=== PATIENT | male | born 1950 | race Two or more races ===

== ENCOUNTER 2018-09-04 05:34 | Day surgery (SDC) | payer OTHER ==
[~2018-09-04 05:34] MED LIST: ALLOPURINOL100 MG PO; MULTI VITAMIN1 EACH PO
== END 2018-09-04 13:55 | disposition home or self-care (01) ==
LOC: CIR.AMB 05:34
DX: D13.1 Benign neoplasm of stomach (principal); K60.3 Anal fistula

== ENCOUNTER 2019-03-16 19:09 | Inpatient (IN) | payer OTHER ==
[~2019-03-16] VITALS: Ht 177.8 cm; Wt 83.9 kg
== END 2019-03-18 10:15 | disposition home or self-care (01) | DRG 348 ==
LOC: ER 19:09 → SURH 19:40 → SEC-K 19:40 → SURH 03-17 00:47
PROVIDERS: ADMIT Colon & Rectal Surgery
PROC: 0D9Q0ZZ Drainage of Anus, Open Approach (ICD-10-PCS; principal; 2019-03-16)
PROC: BW3GY0Z Magnetic Resonance Imaging (MRI) of Pelvic Region using Other Contrast, Unenhanced and Enhanced (ICD-10-PCS; 2019-03-16)
DX: C20 Malignant neoplasm of rectum (principal); K61.0 Anal abscess; Z93.2 Ileostomy status
CPT/HCPCS: 72198

== ENCOUNTER 2022-04-28 20:14 | Emergency (ER) | payer OTHER ==
[~2022-04-28] VITALS: Ht 177.8 cm; Wt 83.9 kg
[2022-04-28] MEDS ORDERED: LEVODOPA25 GM (20:33)
[2022-04-28] MEDS ORDERED: WELLBUTRIN XL300 MG PO (20:34)
[2022-04-28] MEDS ORDERED: CIALIS5 MG PO (20:35)
[2022-04-28] MEDS ORDERED: CENTRUM ADULT120 MCG PO (20:35)
[2022-04-28] MEDS ORDERED: OSTERA TABLET1 EACH PO (20:36)
[2022-04-29] MEDS ORDERED: INTESTINEX680 M1 PO (03:49)
[2022-04-29] MEDS ORDERED: ONDANSETRON ODT4 MG PO (03:49)
== END 2022-04-29 04:10 ==
LOC: ER 20:14
DX: K52.89 Other specified noninfective gastroenteritis and colitis (principal); I10 Essential (primary) hypertension; Z88.8 Allergy status to other drugs, medicaments and biological substances

== ENCOUNTER 2022-04-29 15:08 | Outpatient (CLI) | payer OTHER ==
[~2022-04-29 15:08] MED LIST changes: +CENTRUM ADULT120 MCG PO; +CIALIS5 MG PO; +INTESTINEX680 M1 PO; +LEVODOPA25 GM; +ONDANSETRON ODT4 MG PO; +OSTERA TABLET1 EACH PO; +WELLBUTRIN XL300 MG PO
== END 2022-04-29 15:15 | disposition home or self-care (01) ==
LOC: TOM 15:08
PROVIDERS: ATTEND Colon & Rectal Surgery
DX: K52.89 Other specified noninfective gastroenteritis and colitis (principal); R10.84 Generalized abdominal pain